=== PATIENT | male | born 1985 | race Caucasian/White ===

== ENCOUNTER 2021-10-03 13:44 | Emergency (ER) | payer OTHER ==
--- NOTE | 2021-10-03 14:05 | ED Physician Documentation ---
PD HPI CHEST PAIN - Stated complaint Stated Complaint: CHEST PX - History obtained from History obtained from: Patient - History of Present Illness Timing - onset: Today Timing - onset during: Rest Timing - duration: Hours Timing - details: Abrupt onset, Still present, Waxing and waning Pain level max: 8 Pain level now: 6 Quality: Pressure, Sharp, Pain Location: Substernal, Right chest Radiation: No: Jaw, Neck, Back, Abdominal, Left upper extremity, Right upper extremity Improved by: Nothing Worsened by: Other (nothing) Associated symptoms: No: Shortness of air, Diaphoresis, Nausea, Vomiting, Feeling faint / dizzy, General Weakness, Palpitations, Cough Similar symptoms before: No diagnosis, Work up / diagnostics (had cath for similar pain 8 years ago.) Recently seen: Not recently seen - Additional information Additional information: Previously well 36-year-old male with a history of anxiety has developed pain in the right chest. He was sitting on his couch this morning when this occurred completely at rest. He indicates that he was not feeling well this morning and he was just going to sit on the couch and read a book. He denies radiation of the pain and denies modifying factors. He has had similar pain about 8 years ago and ended up in the [facility] with a negative cath. Today he denies heartburn symptoms but does indicate he has had heart burn previously. He cannot recall a non C-fiber injury in the past week. Review of Systems Constitutional: denies: Fever Eyes: denies: Decreased vision Ears: denies: Ear pain Nose: denies: Congestion Throat: denies: Sore throat Cardiac: reports: Chest pain / pressure. denies: Palpitations, Pedal edema, Calf pain Respiratory: denies: Dyspnea, Cough, Wheezing GI: denies: Abdominal Pain, Nausea, Vomiting : denies: Dysuria, Frequency Skin: denies: Rash Musculoskeletal: denies: Neck pain, Back pain, Extremity pain Neurologic: denies: Generalized weakness, Focal weakness, Numbness PD PAST MEDICAL HISTORY - Present Medications Home Medications: Ambulatory Orders Medication Instructions Recorded Confirmed Azithromycin [Zithromax] 250 mg PO DAILY #6 tablet 10/03/21 - Allergies Allergies/Adverse Reactions: Allergies Allergy/AdvReac Type Severity Reaction Status Date / Time No Known Drug Allergies Allergy Verified 10/03/21 14:05 PD ED PE NORMAL - Vitals Vital signs reviewed: Yes (hypertensive ) - General General: Alert and oriented X 3, No acute distress, Well developed/nourished - HEENT HEENT: Atraumatic, PERRL, EOMI - Neck Neck: Supple, no meningeal sign, No bony TTP - Cardiac Cardiac: RRR, No murmur - Respiratory Respiratory: No respiratory distress, Clear bilaterally, Other (no chest wall or abdominal pain to palpation .) - Abdomen Abdomen: Soft, Non tender, No organomegaly - Back Back: No CVA TTP, No spinal TTP - Derm Derm: Normal color, Warm and dry, No rash - Extremities Extremities: No deformity, No edema - Neuro Neuro: Alert and oriented X 3, 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, No motor deficit, No sensory deficit, Normal speech Eye Opening: Spontaneous Motor: Obeys Commands Verbal: Oriented GCS Score: 15 - Psych Psych: Normal mood, Normal affect Results - Vitals Vitals: Vital Signs - 24 hr 10/03/21 10/03/21 14:00 15:49 Temperature 36.5 C Heart Rate 88 78 Respiratory 16 19 Rate Blood Pressure 136/95 H 166/75 H O2 Saturation 99 99 Oxygen O2 Source Room air - EKG (time done) 1400 Rate: Rate (enter#) (70) Rhythm: NSR Ischemia: Normal ST segments, Non specific changes Compare to prior EKG: Old EKG unavailable Computer interpretation: Agree with computer - Labs Labs: Laboratory Tests 10/03/21 10/03/21 10/03/21 14:00 14:00 14:00 WBC 5.0 RBC 4.50 L Hgb 14.5 Hct 41.5 L MCV 92.2 MCH 32.2 H MCHC 34.9 RDW 12.4 Plt Count 142 MPV 11.0 Neut # (Auto) 3.6 Lymph # (Auto) 0.6 L [place] # (Auto) 0.7 Eos # (Auto) 0.1 Baso # (Auto) 0.0 Absolute Nucleated RBC 0.00 Nucleated RBC % 0.0 Sodium 135 Potassium 4.3 Chloride 97 L Carbon Dioxide 28 Anion Gap 10.0 BUN 14 Creatinine 1.0 Estimated GFR (MDRD) 84 L Glucose 103 H Calcium 9.7 Total Bilirubin 0.7 AST 27 ALT 37 Alkaline Phosphatase 72 Troponin I High Sens 3.8 Total Protein 7.5 Albumin 4.6 Globulin 2.9 Albumin/Globulin Ratio 1.6 Lipase 36 - Rads (name of study) chest Radiology: Prelim report reviewed (Impression: Minimal patchy bibasilar airspace opacities without focal consolidation. Findings are nonspecific and may represent an infectious or inflammatory process.), EMP read indepedently, See rad report PD MEDICAL DECISION MAKING - ED course Complexity details: reviewed results, re-evaluated patient, considered differential, d/w patient ED course: 36-year-old male with pain to the right chest without modifying factors has improvement of pain with Toradol and dexamethasone. We did try viscous lidocaine Mylanta without improvement. The chest x-ray done shows a subtle bibasilar haziness consistent with atypical pneumonia and we have placed the patient on a course of azithromycin. We have swabbed his nose for Covid as well. Departure - Departure Disposition: 01 Home, Self Care Clinical Impression: Atypical pneumonia, Atypical chest pain Condition: Stable Instructions: ED Chest Pain Costochondritis, ED Pneumonia Adult Follow-Up: JT BATEMAN MD [Primary Care Provider] - Prescriptions: Azithromycin [Zithromax] 250 mg PO DAILY #6 tablet Comments: Tesfaye, today on our evaluation it looks like you may have some atypical pneumonia. This could be Covid. I have written a prescription for some antibiotic that is effective against atypical pneumonia and this has been E scribed to [facility] in [place]. Follow the instructions for viral URI as they are helpful in this situation. They are helpful for Covid. Your Covid test is pending and will be available in 1 to 3 days. The recommendation is to test at home where you can get immediate results. Treatment would not be affected by a positive result. Discharge Date/Time: 10/03/21 15:49
[2021-10-03] MEDS ORDERED: MAG HYDROX/AL HYDROX/SIMETH 30 ML UDC PO STA (14:14)
[2021-10-03] MEDS ORDERED: LIDOCAINE VISCOUS 2% 15 ML UDC MM STA (14:14)
[2021-10-03 14:33] LABS: BASOPHILS % (AUTO) 0.4 %; EOSINOPHILS # (AUTO) 0.1 10^3/uL (0.0-0.7); EOSINOPHILS % (AUTO) 1.8 %; HCT - HEMATOCRIT 41.5 % (42.0-52.0); HGB - HEMOGLOBIN 14.5 g/dL (14.0-18.0); LYMPHOCYTES # (AUTO) 0.6 10^3/uL (1.5-3.5); LYMPHOCYTES % (AUTO) 11.1 %; MEAN CORPUSCULAR HEMOGLOBIN 32.2 pg (27.0-31.0); MEAN CORPUSCULAR HGB CONC 34.9 g/dL (32.0-36.0); MEAN CORPUSCULAR VOLUME 92.2 fL (80.0-94.0); MONOCYTES # (AUTO) 0.7 10^3/uL (0.0-1.0); MONOCYTES % (AUTO) 14.5 %; NEUTROPHILS # (AUTO) 3.6 10^3/uL (1.5-6.6); PLT - PLATELET COUNT 142 10^3/uL (130-450); RED CELL DISTRIBUTION WIDTH 12.4 % (12.0-15.0)
[2021-10-03] MEDS ORDERED: DEXAMETHASONE 10 MG/ML VIAL IVP STA (14:34)
[2021-10-03] MEDS ORDERED: KETOROLAC 30 MG/ML VIAL IVP STA (14:34)
[2021-10-03 14:41] LABS: ALBUMIN 4.6 g/dL (3.2-5.5); ALBUMIN/GLOBULIN RATIO 1.6 (1.0-2.2); BILIRUBIN,TOTAL 0.7 mg/dL (0.2-1.0); CALCIUM 9.7 mg/dL (8.5-10.3); POTASSIUM 4.3 mmol/L (3.5-5.0); TOTAL PROTEIN 7.5 g/dL (6.7-8.2)
--- NOTE | 2021-10-03 15:16 | XRAY Report ---
PROCEDURE: Chest 1 View X-Ray INDICATIONS: chest pain TECHNIQUE: One view of the chest was acquired. COMPARISON: None FINDINGS: Surgical changes and devices: None. Lungs and pleura: No pleural effusions or pneumothorax. Minimal patchy bibasilar airspace opacities without focal consolidation. Mediastinum: Mediastinal contours appear normal. Heart size is normal. Bones and chest wall: No suspicious bony lesions. Overlying soft tissues appear unremarkable. IMPRESSION: Minimal patchy bibasilar airspace opacities without focal consolidation. Findings are nonspecific and may represent an infectious or inflammatory process. Recommend follow-up chest radiograph 4-6 weeks after treatment to document resolution of findings and /or return to baseline exam. Reviewed by: Danial Hennessy MD on 10/03/2021 3:14 PM PST Approved by: Danial Hennessy MD on 10/03/2021 3:14 PM PST Station ID: [id number]
[2021-10-03 15:49] VITALS: BP 166/75
== END 2021-10-03 15:49 | disposition home or self-care (01) ==
LOC: ED 13:44
DX: U07.1 COVID-19 (principal); J18.9 Pneumonia, unspecified organism; R07.89 Other chest pain
CPT/HCPCS: 36415; 71045; 80053; 83690; 84484; 85025; 87635; 93005; 96374; 99284; A9270

== ENCOUNTER 2022-03-15 09:25 | Emergency (ER) | payer OTHER ==
[2022-03-15 09:53] LABS: BASOPHILS % (AUTO) 0.7 %; EOSINOPHILS # (AUTO) 0.1 10^3/uL (0.0-0.7); HCT - HEMATOCRIT 42.8 % (42.0-52.0); HGB - HEMOGLOBIN 14.8 g/dL (14.0-18.0); LYMPHOCYTES # (AUTO) 1.1 10^3/uL (1.5-3.5); LYMPHOCYTES % (AUTO) 24.7 %; MEAN CORPUSCULAR HEMOGLOBIN 32.7 pg (27.0-31.0); MEAN CORPUSCULAR HGB CONC 34.6 g/dL (32.0-36.0); MEAN CORPUSCULAR VOLUME 94.5 fL (80.0-94.0); MEAN PLATELET VOLUME 9.7 fL (7.4-11.4); MONOCYTES # (AUTO) 0.5 10^3/uL (0.0-1.0); MONOCYTES % (AUTO) 10.8 %; NEUTROPHILS # (AUTO) 2.8 10^3/uL (1.5-6.6); NEUTROPHILS % (AUTO) 61.6 %; PLT - PLATELET COUNT 162 10^3/uL (130-450); RED BLOOD COUNT 4.53 10^6/uL (4.70-6.10); RED CELL DISTRIBUTION WIDTH 12.7 % (12.0-15.0); WHITE BLOOD COUNT 4.5 x10^3/uL (4.8-10.8)
--- NOTE | 2022-03-15 10:03 | XRAY Report ---
PROCEDURE: Chest 1 View X-Ray INDICATIONS: Chest pain TECHNIQUE: One view of the chest was acquired. COMPARISON: Chest x-ray 10/03/2021 FINDINGS: Surgical changes and devices: None. Lungs and pleura: No pleural effusions or pneumothorax. Lungs are clear. Mediastinum: Mediastinal contours appear normal. Heart size is normal. Bones and chest wall: No suspicious bony lesions. Overlying soft tissues appear unremarkable. IMPRESSION: No acute pulmonary process. Reviewed by: Myranda Galvan MD on 03/15/2022 10:01 AM PDT Approved by: Myranda Galvan MD on 03/15/2022 10:01 AM PDT Station ID: [id number]
[2022-03-15 10:12] LABS: ALBUMIN 4.6 g/dL (3.2-5.5); ALBUMIN/GLOBULIN RATIO 1.4 (1.0-2.2); BILIRUBIN,TOTAL 0.9 mg/dL (0.2-1.0); CALCIUM 9.6 mg/dL (8.5-10.3); CREATININE 0.9 mg/dL (0.6-1.2); POTASSIUM 4.3 mmol/L (3.5-5.0); TOTAL PROTEIN 7.8 g/dL (6.7-8.2)
--- NOTE | 2022-03-15 10:37 | ED Physician Documentation ---
History of Present Illness - Stated complaint Stated Complaint: SHAKING/HAND NUMBNESS - Chief complaint Chief Complaint: Cardiac - History obtained from History obtained from: Patient - History of Present Illness Timing: Prior to arrival - Additonal information Additional information: 36-year-old male with history of anxiety presents for evaluation of a shaking episode that occurred just prior to arrival. Patient states that he was in a meeting when all of a sudden he began to feel palpitations, his hands shook and his fingertips went numb. He states that overall he felt "bad", and the episode lasted for approximately 1 hour. Patient states that he has had similar episodes in the past, however they have self resolved within less than 30 minutes. He attributed them to a panic attack and has never been evaluated for these episodes. Patient currently asymptomatic. Review of Systems Ten Systems: 10 systems reviewed and negative Constitutional: denies: Fever, Chills, Myalgias, Fatigue, Weight Loss, Sweats Eyes: denies: Loss of vision, Decreased vision, Photophobia, Discharge Throat: denies: Dental pain / toothache, Oral lesions / sores, Sore throat Cardiac: reports: Palpitations. denies: Chest pain / pressure, Pedal edema, Calf pain Respiratory: denies: Dyspnea, Cough, Wheezing GI: denies: Abdominal Pain, Abdominal Swelling, Nausea, Vomiting Skin: denies: Rash, Lesions, Abrasion (s) Neurologic: reports: Other (shaking). denies: Generalized weakness, Focal weakness, Numbness, Difficulty speaking, Near syncope, Syncope, Seizure, Confused, Altered mental status, Unresponsive PD PAST MEDICAL HISTORY - Past Medical History Past Medical History: Yes Psych: Anxiety - Past Surgical History Past Surgical History: Yes Cardiovascular: Cardiac catheterization - Present Medications Home Medications: Ambulatory Orders Medication Instructions Recorded Confirmed Escitalopram [Lexapro] 20 mg PO DAILY 03/15/22 03/15/22 traZODone [Desyrel] 50 mg PO HS 03/15/22 03/15/22 - Allergies Allergies/Adverse Reactions: Allergies Allergy/AdvReac Type Severity Reaction Status Date / Time No Known Drug Allergies Allergy Verified 03/15/22 09:36 - Social History Does the pt smoke?: No Smoking Status: Never smoker Does the pt drink ETOH?: Yes Does the pt have substance abuse?: No - Immunizations Immunizations are current?: Yes PD ED PE NORMAL - Vitals Vital signs reviewed: Yes - HEENT HEENT: Atraumatic, PERRL, EOMI, Ears normal, Moist mucous membranes, Pharynx benign, Dentition benign, Other - Neck Neck: Supple, no meningeal sign, No bony TTP, No adenopathy, Thyroid normal, No JVD, No bruit, C-Spine cleared by NEXUS criteria, Other - Cardiac Cardiac: RRR, No murmur, No gallop, No rub, Strong equal pulses, Other - Abdomen Abdomen: Normal bowel sounds, Soft, Non tender, Non distended, No organomegaly, Other - Back Back: No CVA TTP, No spinal TTP, Other - Derm Derm: Normal color, Warm and dry, No rash, Other - Extremities Extremities: No deformity, No tenderness to palpate, Normal ROM s pain, No edema, No calf tenderness / cord, Other - Neuro Neuro: Alert and oriented X 3, 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, No motor deficit, No sensory deficit, Normal speech, Other Results - Vitals Vitals: Vital Signs - 24 hr 03/15/22 03/15/22 09:28 10:46 Temperature 36.5 C Heart Rate 73 71 Respiratory 16 13 Rate Blood Pressure 138/105 H 138/102 H O2 Saturation 98 96 Oxygen O2 Source Room air - EKG (time done) 0945 Rate: Rate (enter#) (60) Rhythm: NSR [place]: Normal Intervals: Normal [place] QRS: Normal Ischemia: Normal ST segments - Labs Labs: Laboratory Tests 03/15/22 03/15/22 03/15/22 09:47 09:47 09:47 WBC 4.5 L RBC 4.53 L Hgb 14.8 Hct 42.8 MCV 94.5 H MCH 32.7 H MCHC 34.6 RDW 12.7 Plt Count 162 MPV 9.7 Neut # (Auto) 2.8 Lymph # (Auto) 1.1 L [place] # (Auto) 0.5 Eos # (Auto) 0.1 Baso # (Auto) 0.0 Absolute Nucleated RBC 0.00 Nucleated RBC % 0.0 Sodium 136 Potassium 4.3 Chloride 99 L Carbon Dioxide 28 Anion Gap 9.0 BUN 10 Creatinine 0.9 Estimated GFR (MDRD) 94 Glucose 99 Calcium 9.6 Total Bilirubin 0.9 AST 35 ALT 47 Alkaline Phosphatase 81 Troponin I High Sens 3.3 Total Protein 7.8 Albumin 4.6 Globulin 3.2 Albumin/Globulin Ratio 1.4 Lipase 30 PD MEDICAL DECISION MAKING - ED course Complexity details: reviewed results, re-evaluated patient, considered differ ential, d/w patient ED course: Well-appearing patient with episode of self resolving palpitations, bilateral upper extremity numbness. Asymptomatic at this time, given patient's history of anxiety and reported history of several of these episodes in the past consider panic attack. Labs and imaging are unremarkable, EKG is sinus rhythm, troponin is negative. Patient counseled to follow-up with his primary care physician Departure - Departure Disposition: 01 Home, Self Care Clinical Impression: Stress reaction Condition: Stable Instructions: ED Stress React Discharge Date/Time: 03/15/22 10:49
[2022-03-15 10:47] VITALS: BP 138/102
== END 2022-03-15 10:49 | disposition home or self-care (01) ==
LOC: ED 09:25
DX: F43.9 Reaction to severe stress, unspecified (principal)
CPT/HCPCS: 36415; 80053; 83690; 84484; 85025; 93005; 99282; 99284

== ENCOUNTER 2022-11-25 08:44 | Outpatient (CLI) | payer OTHER ==
--- NOTE | 2022-11-25 09:49 | SLEEP CARE CONSULTATION ---
Information from patient questionnaire entered by Sima Enriquez. I have reviewed and concur with the information entered by Sima Enriquez. This document represents the service I personally performed and the decisions made by me, Fanny Marie ARNP. History of Present Illness Service Date and Time: 11/25/2022 0844 Reason for Visit: New patient, sleep apnea on CPAP therapy Chief Complaint: reports: Unrefreshed sleep, Excessive daytime sleepiness, Fatigue Date of Onset: 1 year + Usual bedtime: 9 PM Time it takes to fall asleep: <15 minutes Snores at night: Yes Observed to quit breathing while asleep: Yes Sleeps alone due to snoring: No Number of times waking at night: 1-2 Reasons for waking at night: reports: Other (unknown reasons) Toss, Turn, or Twitch while sleeping: No Recalls having dreams: Yes Usually gets out of bed at: betw 5-6 AM Feels refreshed in the morning: No Morning headache: No Sleepy or fatigued during the day: Yes Ever fallen asleep while driving: No Takes day naps: No Dreams during day naps: No Prior sleep studies: Yes Year and Where: 2017 in [place], [place] Type of Sleep Study: Polysomnography Additional HPI information: ALCON VANN was previously diagnosed to have unknown, AHI unknown, sleep apnea-hypopnea syndrome and comes in today to establish care for CPAP therapy. He does not have a copy of his sleep study but states he had severe sleep apnea. - Parasomnia Symptoms Ever been unable to move upon waking from sleep: No Walks in sleep: No Talks in sleep: No Ever acted out dreams in sleep: No Ever felt weak in the knees when startled or emotional: No Bothered by creepy, crawly, restless sensations in legs: No Problems with memory or concentration: No CPAP Compliance Data - Data Reviewed with Patient Average duration of nightly device use: 6 hours 24 minutes Compliance rate %: 83 (/ days used) Current pressure setting (cmH2O): 4-20 (median 7.2, avg 10.2, max 11.8) Humidity settin Average residual AHI: 1.2 Central apnea: 0.1 Obstructive apnea: 0.6 Average large leak: 0.4 lpm Compliance data discussion: He is using a nasal cushion mask, Dreamwear. He has a Resmed Airsense 11 CPAP. He has been getting supplies from [facility] Subjective Patient concerns: reports: condensation in mask/hose (rare occasion), dry mouth, nose, throat (occasionally a little dry mouth). denies: aerophagia, mask discomfort, air blowing in eyes, mask leak noise, nasal congestion, epistaxis Observed to snore while using device: No Current pressure setting perceived as: comfortable On therapy, patient: reports: sleeping better, awakening more refreshed, being more awake and alert during the day, more rested overall. denies: drowsiness while driving Initial [place] Sleepiness Scale score: 13 (11/25/2022) Past Medical History Past Medical History: reports: Arthritis, Anxiety, Depression Social History The patient's occupation is a AM. Patient is and lives in [place]. Have you smoked in the past 12 months: No Cigarettes per day (20/pack): 10 Years of smokin Quit date: 2003 Smoking Pack Years: 1.5 Alcohol use: Yes Alcohol amount and frequency: 2-4 drinks, 4-5 days a week Caffeine use: Yes Caffeine amount and frequency: 4-5 cups coffee/tea daily Family History Family history of sleep disordered breathing: No Family Hx Sleep Apnea: Father: Snoring Allergies and Home Medications Known drug allergies: No Drug allergies reviewed: Yes Home medication list reviewed: Yes Allergy and home medication list: Allergies No Known Drug Allergies Allergy Medications: Trazadone Lexapro Wellbutrin Review of Systems Weight gain over past 5 years: 25 Cardiovascular: denies: high blood pressure Respiratory: denies: shortness of breath Gastrointestinal: denies: heartburn Neurological: denies: headaches Psychiatric: reports: anxiety, depression Ear/Nose/Throat: reports: tonsillectomy Endocrine: denies: thyroid disease Musculoskeletal: reports: back pain Immunologic: denies: allergies to food or environment Physical Exam Vital signs obtained and entered by: SIMA Peterson MA Blood Pressure: 122/78 (LEFT ARM) Cuff size: regular Heart Rate: 75 O2 Saturation: 96 Height: 6 ft Weight: 264 lb 9.6 oz Body Mass Index: 35.9 BMI Classification: Obese Neck circumference: 17.75 Heart: regular rate and rhythm Lungs: clear bilaterally Impression and Plan 1. Obstructive Sleep Apnea-Hypopnea Syndrome, unknown, with good treatment compliance and good apnea control. On CPAP therapy, the patient has better sleep quality and is more rested overall. He does not have a copy of his sleep study with him and does not remember name of facility that diagnosed him in 2018. He will look further at home to see if he can find a copy. In the meantime, I will order a sleep study to verify diagnosis and severity. He is using [facility] for his CPAP supplies without any issues. The patients pressure will be changed to autoCPAP 7-12 cmH20 to reflect pressures being used. Patient advised to contact me if pressure change is uncomfortable so that it can be adjusted. Goals for apnea control discussed. Patient's apnea severity and rationale for treatment to reduce apnea, improve sleep quality and reduce cardiovascular and cerebrovascular events was reviewed. I also reviewed the benefit of consistent device use of CPAP for depression. 2. Obesity, unspecified. Currently patients BMI is 35.9. Obesity increases the risk of apnea, CPAP pressure requirements and overall health risks especially cardiovascular and diabetes. Thus patient is advised to lose weight. * Change auto CPAP pressure to 7-11 cmH2O * PSG/HST to verify diagnosis and severity * Update supplies * Notify me if snoring with mask or feeling that the pressure is too much or too little * Attempt to lose weight * Call this office if any problems using CPAP * Return for follow up after sleep study, or sooner if concerns arise Counseling Topics: Weight loss health impact Visit Type: In Office Time Spent with Patient (minutes): 34 Provider Statement: I spent 100% of the Face to Face Visit with the patient with greater than 50% spent counseling the patient and coordination of care.
[2022-11-25 10:00] VITALS: BP 122/78
== END 2022-11-25 08:45 | disposition home or self-care (01) ==
LOC: SC 08:44
PROVIDERS: ATTEND Nurse Practitioner Family
DX: G47.33 Obstructive sleep apnea (adult) (pediatric) (principal); E66.9 Obesity, unspecified; Z68.35 Body mass index [BMI] 35.0-35.9, adult; Z87.891 Personal history of nicotine dependence
CPT/HCPCS: 99203; 99212

== ENCOUNTER 2022-11-29 19:27 | Outpatient (CLI) | payer OTHER | END 2022-11-29 19:28 | disposition home or self-care (01) | LOC: SC 19:27 | PROVIDERS: ATTEND Nurse Practitioner Family | DX: G47.33 Obstructive sleep apnea (adult) (pediatric) (principal) | CPT/HCPCS: 95810 ==

== ENCOUNTER 2022-12-28 08:22 | Outpatient (CLI) | payer OTHER ==
--- NOTE | 2022-12-28 08:35 | Sleep Patient Instructions ---
Sleep Center Visit Summary - Patient Visit Information Reason for Visit: Sleep study follow up - Patient Instructions Additional Instructions: You were here for follow up of verifying sleep study which showed Moderate obstructive sleep apnea. You will be continued on CPAP therapy with pressure at 7-12 cmH2O. A prescription to update supplies will be sent to [facility]. You should follow up with sleep care in 12 months. You may contact us sooner for any questions or concerns. - Clinic Information Contact: [facility] [address] [place] [address] [email or web address] T: [phone]
[2022-12-28 08:54] VITALS: BP 126/78
--- NOTE | 2022-12-28 08:54 | SLEEP CARE CONSULTATION ---
Information from patient questionnaire entered by Sima Enriquez. I have reviewed and concur with the information entered by Sima Enriquez. This document represents the service I personally performed and the decisions made by , Fanny Marie ARNP. History of Present Illness Service Date and Time: 12/28/2022821 Initial [place] Sleepiness Scale score: 13 (11/25/2022) Current [place] Sleepiness Scale score: 9 (12/28/22) Additional HPI information: ALCON VANN returns for follow up and results of the recently performed polysomnography. I explained the pathophysiology behind obstructive sleep apnea. We then spent quite a bit of time discussing different treatment options. For mild obstructive sleep apnea, surgery and oral appliance are alternatives to nasal CPAP therapy but in moderate or severe cases, nasal CPAP is the most effective and reliable treatment. I reviewed the impact of weight changes on sleep apnea and strongly recommended losing weight. After some discussion, the patient will continue with the nasal CPAP therapy. Nasal autoCPAP set at 7-12 cmH20. Patient counseled not drink alcohol less than 4 hours before bedtime as it can increase snoring and apnea. Patient was cautioned about risks of drowsy driving until sleepiness symptoms resolve. Sleep Study - Results Type of Sleep Study: Polysomnography (COMPLETED 12/28/22) Prior sleep studies: Yes Year and Where: 2017 in [place], [place] Polysomnography/Home Sleep Study results: IMPRESSION: The quality of the study is good. The patient had normal sleep efficiency. The sleep architecture was abnormal for sleep fragmentation and reduced amount of time spent in REM and slow wave sleep (N3). Respiratory monitoring showed moderate obstructive sleep apnea-hypopnea (AHI = 27.2) associated with frequent arousals, oxyhemoglobin desaturation and moderate hypoxia (merlyn oxygen saturation of 77%). The patient only slept supine during this study. Snore was light to moderate intensity. There was no significant periodic leg movement of sleep. Cardiac rhythm was normal sinus rhythm without significant arrhythmia. No abnormal behavior (parasomnia) observed during the night. Allergies and Home Medications Known drug allergies: No Drug allergies reviewed: Yes Home medication list reviewed: Yes (no changes) Allergy and home medication list: Allergies No Known Drug Allergies Allergy (Verified 12/27/22 08:52) Review of Systems Review of systems same as previous: Yes (no changes) Physical Exam Vital signs obtained and entered by: SIMA Peterson MA Blood Pressure: 126/78 (LEFT ARM) Cuff size: regular Heart Rate: 65 O2 Saturation: 95 Height: 6 ft Weight: 259 lb 9.6 oz Weight change since last visit: 5 lb loss Body Mass Index: 35.2 BMI Classification: Obese Impression and Plan 1. Obstructive Sleep Apnea-Hypopnea Syndrome, moderate, with lowest oxygen saturation of 77%. Positive pressure therapy could benefit anxiety and depression. Patient is currently on CPAP with pressure setting at 7-12 cmH2O and will continue with current CPAP settings. Patient's apnea severity and rationale for treatment to reduce apnea, improve sleep quality and reduce cardiovascular and cerebrovascular events was reviewed. I also reviewed the benefit of consistent device use of CPAP for depression/anxiety. Patient requesting a prescription for a travel CPAP. He is going to be traveling for his work soon and would like the convenience of taking a smaller machine. I advised him that most insurances will not cover costs for the CPAP and he would have to pay [id number]. He voiced understanding and still wanted a prescription for a travel CPAP, given. 2. Hypoxemia, moderate, with a merlyn oxygen saturation of 77% and 27 minutes spent under 90%. His baseline oxygen saturation was normal with an average oxygen saturation of 91%. 3. Obesity, unspecified. Currently patients BMI is 35.2. Obesity increases the risk of apnea, CPAP pressure requirements and overall health risks especially cardiovascular and diabetes. Thus patient is advised to continue to try to lose weight. * Continue auto CPAP pressure at 7-12 cmH2O * Update supplies * Travel CPAP prescription * Notify me if snoring with mask or feeling that the pressure is too much or too little * Continue to try to lose weight * Call this office if any problems using CPAP * Return for follow up in 1 year, or sooner if concerns arise Counseling Topics: Weight loss health impact Prescriptions: Device supplies Visit Type: In Office Time Spent with Patient (minutes): 22 Provider Statement: I spent 100% of the Face to Face Visit with the patient with greater than 50% spent counseling the patient and coordination of care.
== END 2022-12-28 08:23 | disposition home or self-care (01) ==
LOC: SC 08:22
PROVIDERS: ATTEND Nurse Practitioner Family
DX: G47.33 Obstructive sleep apnea (adult) (pediatric) (principal); R09.02 Hypoxemia; E66.9 Obesity, unspecified; Z68.35 Body mass index [BMI] 35.0-35.9, adult
CPT/HCPCS: 99212; 99213

== ENCOUNTER 2023-02-16 11:11 | Emergency (ER) | payer OTHER ==
--- NOTE | 2023-02-16 11:37 | ED Physician Documentation ---
History of Present Illness - Stated complaint Stated Complaint: LOWER BACK PX - Chief complaint Chief Complaint: Back Pain - Additonal information Additional information: Patient 37-year-old male presenting to the emergency department with back pain. Referred to the emergency department by primary care after he was unable to get an appointment. Reports has been having worsening of his chronic back pain for the last few days. Recently flew back from [place]. At that time was given a dose of Toradol and Decadron which she stated helped. Has recently been prescribed Mobic and Flexeril by his primary care doctor. He denies any fever, new trauma to the back, night sweats, weight loss, IVDA, saddle paresthesias, loss bowel bladder control. Review of Systems Constitutional: denies: Fever Eyes: denies: Loss of vision Ears: denies: Loss of hearing Nose: denies: Rhinorrhea / runny nose Throat: denies: Dental pain / toothache Cardiac: denies: Chest pain / pressure Respiratory: denies: Dyspnea GI: denies: Abdominal Pain : denies: Dysuria Musculoskeletal: reports: Back pain. denies: Neck pain Neurologic: denies: Generalized weakness Psychiatric: denies: Depressed PD PAST MEDICAL HISTORY - Past Medical History Past Medical History: Yes Cardiovascular: None Respiratory: Sleep apnea, CPAP use Neuro: None Endocrine/Autoimmune: None GI: None : None HEENT: None Psych: Depression, Anxiety Musculoskeletal: Chronic back pain Derm: None - Past Surgical History Past Surgical History: Yes Cardiovascular: Cardiac catheterization HEENT: Tonsil/Adenoidectomy, Other - Present Medications Home Medications: Ambulatory Orders Medication Instructions Recorded Confirmed Escitalopram [Lexapro] 20 mg PO DAILY 03/15/22 02/16/23 Cyclobenzaprine [Flexeril] 10 mg ORAL TID PRN 02/16/23 02/16/23 Meloxicam 15 mg PO DAILY 02/16/23 02/16/23 buPROPion HCL [Bupropion HCl Sr] 150 mg PO DAILY 02/16/23 02/16/23 - Allergies Allergies/Adverse Reactions: Allergies Allergy/AdvReac Type Severity Reaction Status Date / Time No Known Drug Allergies Allergy Verified 02/16/23 11:19 - Social History Does the pt smoke?: No Smoking Status: Never smoker Does the pt drink ETOH?: Yes Does the pt have substance abuse?: No - Immunizations Immunizations are current?: Yes PD ED PE NORMAL - Vitals Vital signs reviewed: Yes - General General: Alert and oriented X 3, No acute distress, Well developed/nourished - HEENT HEENT: Atraumatic, PERRL, EOMI, Ears normal, Moist mucous membranes, Pharynx benign - Neck Neck: Supple, no meningeal sign, No bony TTP, No adenopathy, Thyroid normal, No JVD - Cardiac Cardiac: RRR, No murmur, No gallop, No rub, Strong equal pulses - Respiratory Respiratory: No respiratory distress - Abdomen Abdomen: Normal bowel sounds - Male Male : Deferred - Back Back: No CVA TTP, No spinal TTP - Extremities Extremities: No deformity - Neuro Neuro: Alert and oriented X 3, [employer]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 No red flag symptoms concerning for cauda equina, Discitis, osteomyelitis, epidural abscess. No spinal tenderness to palpation. Patient initially given dose Toradol and Decadron with minimal relief. Follow-up with dose of oxycodone and Valium. Patient passed an ambulatory trial here in the emergency department. At his request he will be provided with walker. His primary care doctor did recently discharged with medications for pain control as well as a muscle relaxer. I discussed other therapeutic interventions that can be of great use in the setting of acute on chronic back pain and we discussed habits of good back hygiene. We will discharge at this time with otherwise clear return precautions given prior to discharge. Departure - Departure Disposition: 01 Home, Self Care Clinical Impression: Back pain Qualifiers: Back pain location: low back pain Chronicity: unspecified Back pain laterality: midline Sciatica presence: without sciatica Qualified Code(s): M54.50 - Low back pain, unspecified Instructions: ED Chronic Pain Management Comments: Thank you for allowing us to care for you today [facility]. Today in the emergency department you are given medications for acute on chronic back pain. Would like you to continue to use the ambulatory assist device provided here in the emergency department as needed. Please take the Mobic and Flexeril provided by your primary care doctor at home for pain control. Please follow-up carefully with your primary care doctor. If it anytime you develop new or worsening symptoms such as worsening pain, fever, numbness or tingling around the anus or genitalia, loss of bowel or bladder control or lower extremity weakness please return to the emergency department immediately for reevaluation. Discharge Date/Time: 02/16/23 13:30
[2023-02-16] MEDS ORDERED: DEXAMETHASONE 10 MG/ML VIAL PO STA (12:01)
[2023-02-16] MEDS ORDERED: KETOROLAC 60 MG/2 ML VIAL IM STA (12:01)
[2023-02-16] MEDS: CHERRY SYRUP 10 ML UDC PO ONE ×2 (12:15→12:18)
[2023-02-16] MEDS ORDERED: diazePAM 5 MG TABLET PO STA (12:51)
[2023-02-16] MEDS ORDERED: oxyCODONE 5 MG TABLET PO STA (12:51)
[2023-02-16 13:20] VITALS: BP 148/100
== END 2023-02-16 13:30 | disposition home or self-care (01) ==
LOC: ED 11:11
DX: M54.50 Low back pain, unspecified (principal); G89.29 Other chronic pain
CPT/HCPCS: 96372; 99283; A9270

== ENCOUNTER 2023-12-07 10:30 | Outpatient (CLI) | payer OTHER ==
--- NOTE | 2023-12-07 13:09 | XRAY Report ---
PROCEDURE: Hip w/Pelvis 2-3V LT INDICATIONS: PAIN IN LEFT HIP TECHNIQUE: 2 views of the hip were acquired. COMPARISON: None. FINDINGS: Bones: No fractures or dislocations. Mild symmetric bilateral femoroacetabular joint space narrowing with tiny right-sided juxta-articular osteophyte. No suspicious bony lesions. Soft tissues: No suspicious soft tissue calcifications or masses. IMPRESSION: 1.No acute bony abnormality. If there remains a high clinical concern for fracture, consider cross-se ctional imaging now. If pain persists, consider repeat x-ray in 10-14 days or cross-sectional imaging . 2.Mild bilateral hip joint space narrowing, symmetric. Reviewed by: Shashi Lewis MD on 12/07/2023 1:08 PM PDT Approved by: Shashi Lewis MD on 12/07/2023 1:08 PM PDT Station ID: [id number]
== END 2023-12-07 10:45 | disposition home or self-care (01) ==
LOC: DI.N 10:30
PROVIDERS: ATTEND Physician Assistant Medical
DX: M25.852 Other specified joint disorders, left hip (principal); M25.851 Other specified joint disorders, right hip; M25.552 Pain in left hip